=== PATIENT | female | born 1955 | race Caucasian/White ===

== ENCOUNTER 2018-03-01 13:53 | Outpatient (CLI) | payer OTHER | END 2018-03-01 15:43 | disposition home or self-care (01) | LOC: SONOGRAMA 13:53 | DX: E04.1 Nontoxic single thyroid nodule (principal) ==

== ENCOUNTER 2018-04-08 20:16 | Emergency (ER) | payer OTHER ==
[~2018-04-08] VITALS: Ht 172.7 cm; Wt 60.3 kg
[2018-04-08] MEDS ORDERED: SYNTHROID50 MCG (21:17)
[2018-04-08] MEDS ORDERED: PREMPHASE 0.621 EACH (21:17)
[2018-04-08] MEDS ORDERED: VITAMIN D400 UNI3 (21:17)
[2018-04-08] MEDS ORDERED: PROZAC20 MG (21:17)
== END 2018-04-08 22:20 | disposition home or self-care (01) ==
LOC: ER 20:16
DX: S81.051A Open bite, right knee, initial encounter (principal); W54.0XXA Bitten by dog, initial encounter; Y93.89 Activity, other specified; Y92.89 Other specified places as the place of occurrence of the external cause; Y99.8 Other external cause status

== ENCOUNTER → 2018-09-19 08:08 | Outpatient (CLI) | payer OTHER ==
[~2018-09-19 08:08] MED LIST: PREMPHASE 0.621 EACH; PROZAC20 MG; SYNTHROID50 MCG; VITAMIN D400 UNI3
== END | disposition home or self-care (01) ==
LOC: LAB 07:57
DX: E03.8 Other specified hypothyroidism (principal); E11.65 Type 2 diabetes mellitus with hyperglycemia; E05.90 Thyrotoxicosis, unspecified without thyrotoxic crisis or storm; E78.2 Mixed hyperlipidemia; E55.9 Vitamin D deficiency, unspecified; D64.89 Other specified anemias; N39.0 Urinary tract infection, site not specified; E24.8 Other Cushing's syndrome; E28.310 Symptomatic premature menopause; K21.0 Gastro-esophageal reflux disease with esophagitis; K30 Functional dyspepsia

== ENCOUNTER 2018-09-19 08:49 | Outpatient (CLI) | payer OTHER | END 2018-09-19 08:58 | disposition home or self-care (01) | LOC: MAMO-SONO 08:49 | DX: E04.1 Nontoxic single thyroid nodule (principal); Z12.31 Encounter for screening mammogram for malignant neoplasm of breast; N61.0 Mastitis without abscess; R10.13 Epigastric pain ==

== ENCOUNTER 2018-09-19 10:43 | Outpatient (CLI) | payer OTHER | END 2018-09-19 10:54 | disposition home or self-care (01) | LOC: NUCLEAR 10:43 | DX: M85.80 Other specified disorders of bone density and structure, unspecified site (principal); M81.0 Age-related osteoporosis without current pathological fracture ==

== ENCOUNTER 2018-10-31 13:01 | Outpatient (CLI) | payer OTHER | END 2018-10-31 13:40 | disposition home or self-care (01) | LOC: SONOGRAMA 13:01 | DX: C56.2 Malignant neoplasm of left ovary (principal) ==

== ENCOUNTER 2018-12-18 10:19 | Outpatient (CLI) | payer OTHER | END 2018-12-18 10:31 | disposition home or self-care (01) | LOC: RAD 10:19 | DX: M79.672 Pain in left foot (principal) ==

== ENCOUNTER 2019-05-03 11:20 | Outpatient (CLI) | payer OTHER | END 2019-05-03 11:25 | disposition home or self-care (01) | LOC: LAB 11:20 | DX: R10.10 Upper abdominal pain, unspecified (principal) ==

== ENCOUNTER → 2019-05-13 | Outpatient (CLI) | payer OTHER | END | disposition home or self-care (01) | LOC: MRI 10:15 | DX: D27.1 Benign neoplasm of left ovary (principal) | CPT/HCPCS: 72196 ==

== ENCOUNTER 2019-10-29 08:11 | Outpatient (CLI) | payer OTHER | END 2019-10-29 08:28 | disposition home or self-care (01) | LOC: SONOGRAMA 08:11 | PROVIDERS: ATTEND Internal Medicine Gastroenterology | DX: E04.8 Other specified nontoxic goiter (principal) ==

== ENCOUNTER 2020-12-29 08:00 | Outpatient (CLI) | payer OTHER | END 2020-12-29 08:30 | disposition home or self-care (01) | LOC: PPH VACUNA 08:00 | DX: Z23 Encounter for immunization (principal) ==

== ENCOUNTER 2021-06-10 10:45 | Outpatient (CLI) | payer OTHER | END 2021-06-10 10:49 | disposition home or self-care (01) | LOC: RAD 10:45 | PROVIDERS: ATTEND Specialist | DX: Z12.31 Encounter for screening mammogram for malignant neoplasm of breast (principal); N64.4 Mastodynia ==

== ENCOUNTER 2022-04-11 12:50 | Outpatient (CLI) | payer OTHER | END 2022-04-11 12:58 | disposition home or self-care (01) | LOC: RAD 12:50 | PROVIDERS: ATTEND Physical Medicine & Rehabilitation | DX: S93.401A Sprain of unspecified ligament of right ankle, initial encounter (principal); S80.02XA Contusion of left knee, initial encounter; S80.01XA Contusion of right knee, initial encounter ==

== ENCOUNTER 2022-06-07 12:01 | Outpatient (CLI) | payer OTHER | END 2022-06-07 12:13 | disposition home or self-care (01) | LOC: RAD 12:01 | PROVIDERS: ATTEND Physical Medicine & Rehabilitation | DX: M43.16 Spondylolisthesis, lumbar region (principal); M54.50 Low back pain, unspecified; M54.2 Cervicalgia ==

== ENCOUNTER 2022-08-10 08:00 | Outpatient (CLI) | payer OTHER | END 2022-08-10 23:00 | disposition home or self-care (01) | LOC: LAB 08:00 | PROVIDERS: ATTEND Family Medicine | DX: N39.8 Other specified disorders of urinary system (principal); I10 Essential (primary) hypertension; E78.00 Pure hypercholesterolemia, unspecified; E55.9 Vitamin D deficiency, unspecified; E11.9 Type 2 diabetes mellitus without complications; D64.9 Anemia, unspecified; E03.9 Hypothyroidism, unspecified; N93.9 Abnormal uterine and vaginal bleeding, unspecified ==

== ENCOUNTER → 2022-08-10 | Outpatient (CLI) | payer OTHER | END | disposition home or self-care (01) | LOC: NUCLEAR 11:00 | PROVIDERS: ATTEND Family Medicine | DX: M81.0 Age-related osteoporosis without current pathological fracture (principal) ==

== ENCOUNTER → 2022-08-10 | Outpatient (CLI) | payer OTHER | END | disposition home or self-care (01) | LOC: MAMO-SONO 08:42 | PROVIDERS: ATTEND Family Medicine | DX: Z12.31 Encounter for screening mammogram for malignant neoplasm of breast (principal) ==

== ENCOUNTER 2023-07-19 11:50 | Outpatient (CLI) | payer OTHER | END 2023-07-19 11:53 | disposition home or self-care (01) | LOC: RAD 11:50 | DX: M19.041 Primary osteoarthritis, right hand (principal); M19.042 Primary osteoarthritis, left hand; M17.0 Bilateral primary osteoarthritis of knee ==

== ENCOUNTER 2023-08-17 10:11 | Outpatient (CLI) | payer OTHER | END 2023-08-17 10:16 | disposition home or self-care (01) | LOC: MAMO-SONO 10:11 | PROVIDERS: ATTEND Obstetrics & Gynecology | DX: N63.0 Unspecified lump in unspecified breast (principal); N64.4 Mastodynia; Z12.31 Encounter for screening mammogram for malignant neoplasm of breast ==

== ENCOUNTER 2024-01-02 15:56 | Outpatient (CLI) | payer OTHER | END 2024-01-02 16:22 | disposition home or self-care (01) | LOC: RAD 15:56 | PROVIDERS: ATTEND Orthopaedic Surgery | DX: M25.561 Pain in right knee (principal); M25.562 Pain in left knee ==

== ENCOUNTER 2024-04-05 12:11 | Outpatient (CLI) | payer OTHER | END 2024-04-05 12:18 | disposition home or self-care (01) | LOC: RAD 12:11 | PROVIDERS: ATTEND Orthopaedic Surgery Sports Medicine | DX: M25.561 Pain in right knee (principal); M25.562 Pain in left knee ==

== ENCOUNTER 2024-08-22 14:29 | Outpatient (CLI) | payer OTHER | END 2024-08-22 14:30 | disposition home or self-care (01) | LOC: MAMO-SONO 14:29 | PROVIDERS: ATTEND Obstetrics & Gynecology | DX: N63.0 Unspecified lump in unspecified breast (principal); R10.9 Unspecified abdominal pain; Z80.41 Family history of malignant neoplasm of ovary; R10.2 Pelvic and perineal pain; N64.4 Mastodynia; Z12.31 Encounter for screening mammogram for malignant neoplasm of breast ==

== ENCOUNTER → 2024-12-24 | Outpatient (CLI) | payer OTHER | END | disposition home or self-care (01) | LOC: SONOGRAMA 08:17 | PROVIDERS: ATTEND Physical Medicine & Rehabilitation | DX: M25.512 Pain in left shoulder (principal) ==

== ENCOUNTER 2025-01-02 08:51 | Outpatient (CLI) | payer OTHER | END 2025-01-02 08:56 | disposition home or self-care (01) | LOC: RAD 08:51 | DX: M25.512 Pain in left shoulder (principal) ==

== ENCOUNTER 2025-02-25 09:44 | Outpatient (CLI) | payer OTHER | END 2025-02-25 09:45 | disposition home or self-care (01) | LOC: NUCLEAR 09:44 | PROVIDERS: ATTEND Obstetrics & Gynecology | DX: M81.0 Age-related osteoporosis without current pathological fracture (principal) ==

== ENCOUNTER → 2025-02-25 | Outpatient (CLI) | payer OTHER | END | disposition home or self-care (01) | LOC: SONOGRAMA 09:37 | PROVIDERS: ATTEND Obstetrics & Gynecology | DX: R33.9 Retention of urine, unspecified (principal); N20.0 Calculus of kidney; N21.0 Calculus in bladder ==